=== PATIENT | male | born 1990 | race Caucasian/White ===

== ENCOUNTER 2017-05-24 19:10 | Emergency (ER) | payer SELFPAY ==
[2017-05-24 19:17] VITALS: BP 114/79
[2017-05-24 19:37] LABS: RAPID STREP SCREEN REAGENT QC YELLOW (YELLOW)
--- NOTE | 2017-05-24 19:37 | ED Physician Documentation ---
PD HPI URI - Stated complaint Stated Complaint: SORE THROAT - Chief complaint Chief Complaint: Heent - History obtained from History obtained from: Patient - History of Present Illness Timing - onset: How many days ago (3-4) Timing duration: Days (3-4) Timing details: Gradual onset, Still present Associated symptoms: Chills, Sore throat, Swollen nodes. No: Ear pain, Nasal congestion, Dry cough Contributing factors: No: Sick contact, Travel, Immunocompromised Similar symptoms before: Has not had sx before Recently seen: Not recently seen Review of Systems Constitutional: reports: Chills, Myalgias Nose: denies: Rhinorrhea / runny nose, Congestion Throat: reports: Sore throat Cardiac: denies: Chest pain / pressure Respiratory: denies: Dyspnea, Cough GI: denies: Vomiting, Diarrhea Skin: denies: Rash PD PAST MEDICAL HISTORY - Past Medical History Past Medical History: No - Past Surgical History Past Surgical History: No - Present Medications Home Medications: Ambulatory Orders Medication Instructions Recorded Confirmed Cephalexin [Keflex] 500 mg PO QID #20 capsule 05/24/17 Dexamethasone [Decadron] 4 mg PO DAILY #5 tablet 05/24/17 - Allergies Allergies/Adverse Reactions: Allergies Allergy/AdvReac Type Severity Reaction Status Date / Time No Known Drug Allergies Allergy Verified 05/24/17 19:17 - Social History Does the pt smoke?: No Smoking Status: Never smoker Does the pt drink ETOH?: No Does the pt have substance abuse?: Yes Substance Use and Type: Marijuana - Immunizations Immunizations are current?: Yes - POLST Patient has POLST: No PD ED PE NORMAL - Vitals Vital signs reviewed: Yes - General General: Alert and oriented X 3, No acute distress, Well developed/nourished - HEENT HEENT: Ears normal. No: Pharynx benign (tonsils red and enlarged with exudate. No peritonsillar swelling nor uvular deviation. ) - Neck Neck: Supple, no meningeal sign, Other (anterior adenopathy bilaterally. ) - Cardiac Cardiac: RRR, No murmur - Respiratory Respiratory: Clear bilaterally - Derm Derm: Normal color, Warm and dry, No rash - Extremities Extremities: No deformity, No tenderness to palpate - Neuro Neuro: Alert and oriented X 3, No motor deficit, Normal speech Results - Vitals Vitals: Vital Signs - 24 hr 05/24/17 19:14 Temperature 35.9 C L Heart Rate 109 H Respiratory 18 Rate Blood Pressure 114/79 O2 Saturation 99 - Labs Labs: Laboratory Tests 05/24/17 19:17 Group A Strep Rapid POSITIVE H PD MEDICAL DECISION MAKING - ED course Complexity details: reviewed results, considered differential, d/w patient Departure - Departure Disposition: 01 Home, Self Care Clinical Impression: Acute streptococcal pharyngitis Condition: Stable Record reviewed to determine appropriate education?: Yes Instructions: ED Strep Pharyngitis Conf Prescriptions: Cephalexin [Keflex] 500 mg PO QID #20 capsule Dexamethasone [Decadron] 4 mg PO DAILY #5 tablet Comments: Drink lots of fluids. Tylenol or ibuprofen if needed for pains or fever. Cephalexin as directed for 5 days for the infection. Decadron for 5 days for the inflammation. You will be okay to resume work after full day on antibiotics so would be okay to resume on Sunday. Return if not better over the next 3-5 days. Forms: Activity restrictions Discharge Date/Time: 05/24/17 20:19
[2017-05-24] MEDS ORDERED: ACETAMINOPHEN 325 MG TABLET PO STA (19:54)
[2017-05-24] MEDS ORDERED: DEXAMETHASONE 10 MG/ML VIAL PO STA (19:54)
[2017-05-24] MEDS ORDERED: cephALEXin 250 MG CAPSULE PO STA (19:54)
[2017-05-24] MEDS ORDERED: ACETAMINOPHEN 325 MG TABLET PO ONE (20:02)
[2017-05-24] MEDS ORDERED: cephALEXin 250 MG CAPSULE PO ONE (20:02)
[2017-05-24] MEDS ORDERED: DEXAMETHASONE 10 MG/ML VIAL ONE (20:02)
== END 2017-05-24 20:19 | disposition home or self-care (01) ==
LOC: ED 19:10
DX: J02.0 Streptococcal pharyngitis (principal)
CPT/HCPCS: 87430; 99283; A9270